=== PATIENT | female | born 1945 | race Caucasian/White ===

== ENCOUNTER → 2020-11-29 | Outpatient (CLI) | payer MEDICARE | END | disposition home or self-care (01) | LOC: CFH 08:38 | PROVIDERS: ATTEND Internal Medicine | DX: J43.2 Centrilobular emphysema (principal); J92.9 Pleural plaque without asbestos; J84.10 Pulmonary fibrosis, unspecified; K44.9 Diaphragmatic hernia without obstruction or gangrene; I25.10 Atherosclerotic heart disease of native coronary artery without angina pectoris | CPT/HCPCS: 71250 ==

== ENCOUNTER 2021-01-05 15:28 | Emergency (ER) | payer MEDICARE ==
[~2021-01-05] VITALS: Ht 162.6 cm; Wt 104.8 kg
--- NOTE | 2021-01-05 15:57 | NUR ---
PATIENT WHEELED BACK FROM TRIAGE WITH CHIEF C/O SOB AND CHEST PAIN X1 MONTH. PATIENT DENIES FEVER, N/V/D. PATIENT REPORTS SYMPTOMS HAVE PROGRESSIVELY GOTTEN WORSE, AND WHEN SHE WALKS SHE GETS PAIN IN HER CHEST, PATIENT REPORTS COUGH. MINDY TEJADA, CALL LIGHT WITHIN REACH, ACCOMPANIED BY FRIEND.
--- NOTE | 2021-01-05 16:22 | NUR ---
20 GAUGE IV STARTED LEFT AC, BLOOD COLLECTED AND LABELLED AT BEDSIDE.
--- NOTE | 2021-01-05 17:24 | NUR ---
PATIENT AMBULATED TO BATHROOM WITH STEADY GAIT, O2 SATURATION DROPPED TO 70'S ON 4 LPM NC, PATIENT BACK UP TO 95% AFTER RESTING IN GURNEY FOR A FEW MINUTES. OTHER VSS. WAITING FOR PROVIDER ORDERS.
--- NOTE | 2021-01-05 17:39 | NUR ---
ERMD AT BEDSIDE FOR EVALUATION.
[2021-01-05] MEDS ORDERED: SODIUM CHLORIDE FLUSH 10ML SYR IVF ONE (18:30)
[2021-01-05 18:40] LABS: BASOPHILS % (AUTO) 1 % (0-1); EOSINOPHILS % (AUTO) 3 % (1-7); LYMPHOCYTES % (AUTO) 18 % (22-44); MD NO; MEAN CORPUSCULAR HEMOGLOBIN 32.1 pg (27.0-34.8); MEAN PLATELET VOLUME 9.7 fL (7.4-10.4); MONOCYTES % (AUTO) 8 % (2-9); NEUTROPHILS % (AUTO) 71 % (42-75); PLATELET COUNT 169 x10^3/uL (130-400); RED BLOOD COUNT 3.93 x10^6/uL (3.82-5.3); RED CELL DISTRIBUTION WIDTH 13.1 % (9.6-15.2)
--- NOTE | 2021-01-05 18:46 | NUR ---
REPORT FROM SONY BRYAN
[2021-01-05 18:47] LABS: ALBUMIN 3.6 g/dL (3.4-5.0); ANION GAP 4 mmol/L (5-15); CALCIUM 8.7 mg/dL (8.5-10.1); CHLORIDE 103 mmol/L (98-107); CREATININE 0.83 mg/dL (0.55-1.02)
[2021-01-05 18:51] LABS: TROPONIN I < 0.015 ng/mL (0.000-0.045)
--- NOTE | 2021-01-05 19:05 | NUR ---
PT AMBULATORY WITH STEADY GAIT TO BATHROOM. PT DENIES ANY ADDITIONAL NEEDS. PT RETURNED TO ROOM, SITTING UPRIGHT ON GURNEY, REPOSITIONED FOR COMFORT. CALL LIGHT AND BELONGINGS WITHIN REACH.
--- NOTE | 2021-01-05 20:15 | NUR ---
ATTEMPT TO AMBULATE PT WITH 5L O2 VIA NASAL CANNULA. PT O2 SAT REMAINS AT 89% WHILE WALKING. PT STATES "WALKING REALLY MAKES ME TIRED." PT RETURNED TO ROOM, MALLORY. ERP AWARE. NO ADDITIONAL NEEDS AT THIS TIME.
[2021-01-05 21:21] VITALS: BP 136/72
--- NOTE | 2021-01-05 21:30 | NUR ---
Patient given discharge instructions and they have confirmed that they understand the instructions. Patient ambulatory with steady gait with use of home o2 concentrater.
== END 2021-01-05 21:32 | disposition home or self-care (01) ==
LOC: ED 15:58
DX: R06.00 Dyspnea, unspecified (principal); R07.89 Other chest pain; R06.02 Shortness of breath; R42 Dizziness and giddiness; Z87.891 Personal history of nicotine dependence
CPT/HCPCS: 36415; 71045; 80048; 82040; 83880; 84484; 85025; 93005; 99285